=== PATIENT | female | born 1970 ===

== ENCOUNTER 2017-02-01 09:27 | Inpatient (IN) | payer MEDICAID ==
[2017-02-01 09:28] VITALS: BMI 24.7
[2017-02-01 09:56] VITALS: O2SAT 99
--- NOTE | 2017-02-01 12:00 | ED PDOC ---
Lower Extremity Pain/Injury Time Seen by Provider: 02/01/17 10:00 Chief Complaint (Nursing): Lower Extremity Problem/Injury Chief Complaint (Provider): Lower Extremity Problem/Injury History Per: Patient History/Exam Limitations: no limitations Onset/Duration Of Symptoms: Days (x today) Current Symptoms Are (Timing): Still Present Additional Complaint(s): Jenniffer is a 46 year old female who was brought by EMS to the emergency department for medical evaluation. Patient is complaining of right ankle pain s/p trip. Patient states she slipped and twisted her right ankle and has pain that radiates to her leg. 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 Patient states she has history of depression, but has not taken her medications for many years. Patient has a history of right foot injury and wore a boot before. Denies suicidal ideations or homicidal ideations. PMD: No Family Provider Past Medical History Reviewed: Historical Data, Nursing Documentation, Vital Signs Vital Signs: Last Vital Signs Temp 97.6 F 02/01/17 09:53 Pulse 78 02/01/17 09:53 Resp 18 02/01/17 09:53 BP 157/75 H 02/01/17 09:53 Pulse Ox 99 02/01/17 09:53 - Medical History PMH: Depression, Gastrointestinal Ulcer, HTN - Surgical History Surgical History: Cholecystectomy, Tonsillectomy - Family History Family History: States: Unknown Family Hx - Social History Current smoker - smoking cessation education provided: Yes (3 cigg a day) Alcohol: Occasional - Home Medications Home Medications: Ambulatory Orders Medication Instructions Recorded No Known Home Med [No Known Home 07/06/13 Med] - Allergies Allergies/Adverse Reactions: Allergies Allergy/AdvReac Type Severity Reaction Status Date / Time Penicillins Allergy SWELLING Verified 02/01/17 09:47 Review of Systems ROS Statement: Except As Marked, All Systems Reviewed And Found Negative Musculoskeletal: Positive for: Other (Right Ankle Pain) Psych: Positive for: Depression Physical Exam - Reviewed Nursing Documentation Reviewed: Yes Vital Signs Reviewed: Yes - Physical Exam Appears: Positive for: No Acute Distress Skin: Positive for: Normal Color, Warm, Dry Neck: Positive for: Normal Cardiovascular/Chest: Positive for: Regular Rate, Rhythm Respiratory: Positive for: Normal Breath Sounds. Negative for: Respiratory Distress Gastrointestinal/Abdominal: Positive for: Normal Exam. Negative for: Tenderness Extremity: Positive for: Other (See comments) Neurologic/Psych: Positive for: Alert, Oriented (x 3) Comments: Right Ankle: (+): tenderness over dorsum, capillary refill less than 2 seconds, Full ROM (-): Swelling/stepoff/hematoma Hip: (-): Tenderness FROM of entire R leg - Laboratory Results Result Diagrams: 02/01/17 11:58 02/01/17 11:58 - ECG O2 Sat by Pulse Oximetry: 99 (RA) Pulse Ox Interpretation: Normal Medical Decision Making Medical Decision Making: Time: 11:26 Plan: - Acetaminophen - Alcohol Serum - BMP - Drug Screen, Urine - Salicylate - CBC - Right Ankle X-Ray - Right Foot X-Ray - Right Hip X-Ray - Urinalysis Time: 12:14 Right Foot X-Ray FINDINGS: BONES: Unremarkable. No fracture. JOINTS: Unremarkable. SOFT TISSUES: Normal. OTHER FINDINGS: Small inferior plantar calcaneal spur. IMPRESSION: No demonstrated fracture or dislocation. Time: 12:14 Right Ankle X-ray FINDINGS: BONES: Unremarkable. No fracture. JOINTS: Unremarkable. Ankle mortise maintained. Talar dome intact SOFT TISSUES: Normal. OTHER FINDINGS: Small inferior plantar calcaneal spur. IMPRESSION: No demonstrated fracture or dislocation. Time: 12:16 Right Hip X-Ray FINDINGS: BONES: Unremarkable. No fracture. JOINTS: Normal. SOFT TISSUES: Normal. OTHER FINDINGS: None. IMPRESSION: Normal radiographs of right hip. Time: 15:23 Results discussed with patient. Patient is medical clear for crisis. Time: 15:48 Patient will be admitted as an inpatient in adult psychiatry under the care of Gena Thomas for depression. Scribe Attestation: Documented by Que Flor, acting as a scribe for Alec Marti MD Provider Scribe Attestation: All medical record entries made by the Scribe were at my direction and personally dictated by me. I have reviewed the chart and agree that the record accurately reflects my personal performance of the history, physical exam, medical decision making, and the department course for this patient. I have also personally directed, reviewed, and agree with the discharge instructions and disposition. Disposition - Clinical Impression Clinical Impression: Depression - Patient ED Disposition Is Patient to be Admitted: Yes Doctor Will See Patient In The: Hospital - Disposition Disposition Time: 15:35 Condition: STABLE - Pt Status Changed To: Hospital Disposition Of: Inpatient - Admit Certification Admit to Inpatient:: After my assessment, the patient will require hospitalization for at least two midnights. This is because of the severity of symptoms shown, intensity of services needed, and/or the medical risk in this patient being treated as an outpatient.
[2017-02-01 12:04] LABS: BASO % 0.2 % (0.0-2.0); EOS # 0.1 K/uL (0.0-0.7); EOS % 1.1 % (0.0-4.0); HEMATOCRIT 33.8 % (34.0-47.0); LYMPH # 1.3 K/uL (1.0-4.3); LYMPH % 18.5 % (20.0-40.0); MEAN CELL VOLUME 98.9 fl (81.0-99.0); MEAN CORPUSCULAR HEMOGLOBIN 33.1 pg (27.0-31.0); MEAN CORPUSCULAR HGB CONC 33.5 g/dL (33.0-37.0); MEAN PLATELET VOLUME 7.7 fl (7.2-11.7); MONO # 0.9 K/uL (0.0-0.8); MONO % 12.1 % (0.0-10.0); NEUT # 4.9 K/uL (1.8-7.0); NEUT % 68.1 % (50.0-75.0); NRBC % 0.2 % (0.0-0.0); RED CELL DISTRIBUTION WIDTH 16.4 % (11.5-14.5); WHITE BLOOD COUNT 7.2 K/uL (4.8-10.8)
--- NOTE | 2017-02-01 12:15 | RAD ---
PROCEDURE: Right Foot Radiographs. HISTORY: ankle and foot pain sp sprain COMPARISON: None. FINDINGS: BONES: Unremarkable. No fracture. JOINTS: Unremarkable. SOFT TISSUES: Normal. OTHER FINDINGS: Small inferior plantar calcaneal spur. IMPRESSION: No demonstrated fracture or dislocation.
--- NOTE | 2017-02-01 12:16 | RAD ---
PROCEDURE: Right Ankle Radiographs. HISTORY: sprain COMPARISON: None FINDINGS: BONES: Unremarkable. No fracture. JOINTS: Unremarkable. Ankle mortise maintained. Talar dome intact SOFT TISSUES: Normal. OTHER FINDINGS: Small inferior plantar calcaneal spur. IMPRESSION: No demonstrated fracture or dislocation.
--- NOTE | 2017-02-01 12:17 | RAD ---
PROCEDURE: Right Hip Radiographs. HISTORY: sprain COMPARISON: None. FINDINGS: BONES: Unremarkable. No fracture. JOINTS: Normal. SOFT TISSUES: Normal. OTHER FINDINGS: None. IMPRESSION: Normal radiographs of right hip.
[2017-02-01 12:22] LABS: ALCOHOL SERUM < 10 mg/dl (0-10); BLOOD UREA NITROGEN 11 mg/dl (7-17); CALCIUM 8.9 mg/dL (8.4-10.2); CARBON DIOXIDE 23 mmol/L (22-30); CHLORIDE 109 mmol/L (98-107); GFR AFRICAN-AMERICAN > 60; GLUCOSE,RANDOM 103 mg/dL (65-105); POTASSIUM 4.1 MMOL/L (3.6-5.0); SODIUM 139 mmol/l (132-148)
[2017-02-01 13:10] LABS: URINE COLOR STRAW (YELLOW); URINE GLUCOSE (UA) NEG (Normal)
[2017-02-01 13:11] LABS: RBC URINE 2 /hpf (0-3); URINE BACTERIA FEW (<OCC); URINE BILIRUBIN NEGATIVE (NEGATIVE); URINE BLOOD NEGATIVE (NEGATIVE); URINE KETONE NEGATIVE (NEGATIVE); URINE LEUKOCYTE ESTERASE NEG Leu/uL (Negative); URINE PROTEIN NEGATIVE (NEGATIVE); URINE UROBILINOGEN 0.2 mg/dL (0.2-1.0); WBC URINE 1 /hpf (0-5)
[2017-02-01] MEDS ORDERED: Albuterol HFA 90 mcg/actuation (8 g) IH PRN (20:02)
--- NOTE | 2017-02-01 20:07 | CP.PCM.HP ---
History of Present Illness - History of Present Illness History of Present Illness: CC: Depression, R ankle pain HPI: This is a 46 y/o female, possibly undomiciled, who has HTN, depression, and gastritis but is non compliant with medications. She comes into the ER with R ankle pain after 'slipping and twisting her ankle'. She states she has a ' fractured calcaneus' and multiple other injuries. States pain radiates up her leg, and she is unable to weight bear. States that she is able to tolerate ambulation when she has her air boot. Patient also noted she is depressed, and is feeling worse; not been on medications for years. Denies HI or SI at this time. ROS: 14 systems negative other than HPI MHx: HTN, Depression, gastritis SHx: Cholecystectomy, tonsils Allergies: PCN, lithium, risperidone, amitriptyline Medications: None Family Hx: Patient unable to provide Social Hx: Unclear living situation, likely homeless; occ EtOH, 2-3 cigs daily Present on Admission - Present on Admission Any Indicators Present on Admission: No Past Patient History - Infectious Disease Hx of Infectious Diseases: None - Past Social History Alcohol: Occasional - CARDIAC Hx Cardiac Disorders: No Hx Hypertension: Yes - PULMONARY Hx Tuberculosis: No - NEUROLOGICAL HX Cerebrovascular Accident: No Hx Seizures: No - HEMATOLOGICAL/ONCOLOGICAL Hx Cancer: No Hx Human Immunodeficiency Virus (HIV): No - GENITOURINARY/GYNECOLOGICAL Hx Sexually Transmitted Disorders: No - PSYCHIATRIC Hx Depression: Yes - SURGICAL HISTORY Hx Cholecystectomy: Yes Hx Tonsillectomy: Yes - ANESTHESIA Hx Anesthesia: Yes Hx Anesthesia Reactions: No Meds Allergies/Adverse Reactions: Allergies Allergy/AdvReac Type Severity Reaction Status Date / Time amitriptyline [From Elavil] Allergy Severe DIZZINESS Verified 02/01/17 16:32 lithium Allergy Severe DIZZINESS Verified 02/01/17 16:31 risperidone [From Risperdal] Allergy Severe ANGIOEDEMA Verified 02/01/17 16:30 Penicillins Allergy SWELLING Verified 02/01/17 09:47 Physical Exam - Constitutional Appears: No Acute Distress - Head Exam Head Exam: ATRAUMATIC, NORMOCEPHALIC - Eye Exam Eye Exam: EOMI, PERRL - ENT Exam ENT Exam: Mucous Membranes Moist - Neck Exam Neck exam: Positive for: Normal Inspection - Respiratory Exam Respiratory Exam: Clear to Auscultation Bilateral, NORMAL BREATHING PATTERN - Cardiovascular Exam Cardiovascular Exam: REGULAR RHYTHM, +S1, +S2 - GI/Abdominal Exam GI & Abdominal Exam: Normal Bowel Sounds, Soft - Extremities Exam Extremities exam: Positive for: normal inspection Additional comments: R ankle without swelling/tenderness/redness; appears to have almost full range of motion. Patient unwilling to weight bear without support. - Neurological Exam Neurological exam: Alert, CN II-XII Intact, Oriented x3 - Psychiatric Exam Psychiatric exam: Depressed Results - Vital Signs Recent Vital Signs: Last Vital Signs Temp 97.6 F 02/01/17 09:53 Pulse 78 02/01/17 09:53 Resp 18 02/01/17 09:53 BP 157/75 H 02/01/17 09:53 Pulse Ox 99 02/01/17 16:13 - Labs Result Diagrams: 02/01/17 11:58 02/01/17 11:58 Labs: Laboratory Results - last 24 hr 02/01/17 02/01/17 02/01/17 11:58 11:58 11:58 WBC 7.2 RBC 3.42 L Hgb 11.3 L Hct 33.8 L MCV 98.9 MCH 33.1 H MCHC 33.5 RDW 16.4 H Plt Count 241 MPV 7.7 Neut % (Auto) 68.1 Lymph % (Auto) 18.5 L [place] % (Auto) 12.1 H Eos % (Auto) 1.1 Baso % (Auto) 0.2 Neut # 4.9 Lymph # 1.3 [place] # 0.9 H Eos # 0.1 Baso # 0.0 Sodium 139 Potassium 4.1 Chloride 109 H Carbon Dioxide 23 Anion Gap 11 BUN 11 Creatinine 0.5 L Est GFR ( Amer) > 60 Est GFR (Non-Af Amer) > 60 Random Glucose 103 Calcium 8.9 Urine Color Urine Clarity Urine pH Ur Specific [place] Urine Protein Urine Glucose (UA) Urine Ketones Urine Blood Urine Nitrate Urine Bilirubin Urine Urobilinogen Ur Leukocyte Esterase Urine RBC (Auto) Urine Microscopic WBC Ur Squamous Epith Cells Urine Bacteria Salicylates < 1.0 Urine Opiates Screen Urine Methadone Screen Acetaminophen < 10.0 L Ur Barbiturates Screen Ur Phencyclidine Scrn Ur Amphetamines Screen U Benzodiazepines Scrn U Oth Cocaine Metabols U Cannabinoids Screen Alcohol, Quantitative < 10 02/01/17 02/01/17 12:53 12:53 WBC RBC Hgb Hct MCV MCH MCHC RDW Plt Count MPV Neut % (Auto) Lymph % (Auto) [place] % (Auto) Eos % (Auto) Baso % (Auto) Neut # Lymph # [place] # Eos # Baso # Sodium Potassium Chloride Carbon Dioxide Anion Gap BUN Creatinine Est GFR ( Amer) Est GFR (Non-Af Amer) Random Glucose Calcium Urine Color Straw Urine Clarity Clear Urine pH 6.0 Ur Specific [place] 1.006 Urine Protein Negative Urine Glucose (UA) Neg Urine Ketones Negative Urine Blood Negative Urine Nitrate Negative Urine Bilirubin Negative Urine Urobilinogen 0.2 Ur Leukocyte Esterase Neg Urine RBC (Auto) 2 Urine Microscopic WBC 1 Ur Squamous Epith Cells 1 Urine Bacteria Few H Salicylates Urine Opiates Screen Negative Urine Methadone Screen Negative Acetaminophen Ur Barbiturates Screen Negative Ur Phencyclidine Scrn Negative Ur Amphetamines Screen Negative U Benzodiazepines Scrn Negative U Oth Cocaine Metabols Negative U Cannabinoids Screen Negative Alcohol, Quantitative Assessment & Plan (1) Ankle sprain Assessment and Plan: 46 y/o female admitted for depression, but also claims she has a sprained R ankle and prior injuries and is unable to weightbear. 1) Depression -- as per psych 2) R ankle sprain -- imaging and exam appear normal -Will order ibuprofen for pain with scale -Patient may use her own air boot as needed -Move to 3 NS for closer assistance with ADLs/ambulation 3) HTN -- resume losartan 4) GI -- resume protonix Status: Acute (2) HTN (hypertension) Status: Acute (3) Depression Status: Acute
[2017-02-01] MEDS ORDERED: DiphenhydrAMINE 50 mg/ml Inj IM PRN (20:57)
[2017-02-01] MEDS ORDERED: Alum-Mag Hydrox-Simethicone Susp (30 mL) PO PRN (20:57)
[2017-02-01] MEDS ORDERED: Magnesium Hydroxide Susp 30 ml UD PO PRN (20:57)
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
[2017-02-02 07:11] LABS: T4 8.25 ug/dl (5.5-11.0)
[2017-02-02 07:24] LABS: THYROID STIMULATING HORMONE 0.82 mIU/ML (0.46-4.68)
--- NOTE | 2017-02-02 08:17 | PCM.PSYCH ---
Initial Psychiatric Evaluation - Initial Psychiatric Evaluation Type of Admission: Voluntary Legal Status: Capacity Chief Complaint (in patient's own words): "I was feeling suicidal because I can't walk." Patient's Reaction to Hospitalization: HPI: 46 yo female self referred to the ER due to worsening depression, lack of compliance with psychiatric treatment and suicidal ideation w/o any specific plan/intent. She denies AH/VH/HI/paranoia/delusions. She does reports poor sleep/appetite. She is focused on her difficulty ambulating due to having a poorly healed Right foot s/p breaking it a few years ago (as per patient). PPHx: She reports multiple past psychiatric admission, but could not recall the details. She states that she has been on several medications in the past including Lexpro, Effexor, Zoloft, but it seems that the patient has not been compliant with psychiatric treatment for long periods of time. PMHx: s/p R foot injury, HTN, Asthma, r/o GERD, chronic foot pain ALL: Amitriptyline, Lavelle, Risperidone, PCN SHx: Homeless, has three 3 children; unemployed; she denies drug use, but does report that she drinks ETOH ever few days up to 1 or 2 pts of vodka; she denies history of ETOH w/drawal or current w/drawal symptoms; smokes 1/2 ppd Current Medications: Active Medications Generic Name Dose Route Start Last Admin Trade Name Freq PRN Reason Stop Dose Admin Acetaminophen 650 mg 02/01/17 20:57 Tylenol 325mg Tab PO Q4 PRN T>101;pain 1-7;headache Al Hydrox/Mg Hydrox/Simethicone 30 ml 02/01/17 20:57 Maalox Plus 30 Ml PO Q4 PRN Dyspepsia Albuterol 2 puff 02/01/17 20:02 02/02/17 01:05 Ventolin Hfa 90 Mcg/Actuation (8 G) IH 2 puff Q6H PRN Administration Shortness of Breath Diphenhydramine HCl 50 mg 02/01/17 20:57 Benadryl IM Q6 PRN Extrapyramidal S/S Unable PO Diphenhydramine HCl 50 mg 02/01/17 20:57 Benadryl PO Q6 PRN Extrapyramidal Symptoms Diphenhydramine HCl 50 mg 02/01/17 21:03 Benadryl PO HS PRN Sleep Fluoxetine HCl 20 mg 02/02/17 09:00 Prozac PO DAILY [facility] Haloperidol 5 mg 02/01/17 20:57 Haldol PO Q4 PRN Agitation Haloperidol Lactate 5 mg 02/01/17 20:57 Haldol IM Q4 PRN Agitation, Unable to Take PO Ibuprofen 600 mg 02/01/17 20:01 Motrin Tab PO Q8 PRN Pain, moderate (4-7) Ibuprofen 400 mg 02/01/17 20:01 Motrin Tab PO Q8H PRN Pain, Mild (1-3) Lorazepam 2 mg 02/01/17 20:57 Ativan IM Q4 PRN Anxiety/Agitation,Unable PO Losartan Potassium 50 mg 02/02/17 09:00 Cozaar PO DAILY [facility] Magnesium Hydroxide 30 ml 02/01/17 20:57 Milk Of Magnesia PO HS PRN Constipation Pantoprazole Sodium 40 mg 02/02/17 09:00 Protonix Ec Tab PO DAILY [facility] Past Psychiatric History - Past Psychiatric History Previous Treatment History: Inpatient Pertinent Medical Hx (Current Medical&Sleep Prob, Allergies): Allergies Allergy/AdvReac Type Severity Reaction Status Date / Time amitriptyline [From Elavil] Allergy Severe DIZZINESS Verified 02/01/17 16:32 lithium Allergy Severe DIZZINESS Verified 02/01/17 16:31 risperidone [From Risperdal] Allergy Severe ANGIOEDEMA Verified 02/01/17 16:30 Penicillins Allergy SWELLING Verified 02/01/17 09:47 Albuterol Sulfate [Proair Hfa] 2 puff IH Q6H PRN 02/01/17 Iron Carb,Gl/FA/B12/C/Docusate [Ferralet 90 Tablet] 1 tab PO DAILY 02/01/17 Losartan [Cozaar] 50 mg PO DAILY 02/01/17 Pantoprazole Sodium [Protonix] 40 mg PO DAILY 02/01/17 Review of Systems - Psychiatric Psychiatric: As Per HPI, Abnormal Sleep Pattern, Anxiety, Change in Appetite, Depression, Irritability, Mood Swings, Suicidal Ideation Mental Status Examination - Personal Presentation Personal Presentation: Looks stated age - Affect Affect: Constricted, Other (Irritable) - Motor Activity Motor Activity: Calm - Reliability in Providing Information Reliability in Providing Information: Fair - Speech Speech: Organized - Mood Mood: Depressed - Formal Thought Process Formal Thought Process: No Impairment - Hallucinations/Delusions Additional comments: No AH/VH/paranoia/delusions - Obsessions/Compulsions Obsessions: No Compulsions: No - Cognitive Functions Orientation: Person, Place, Situation, Time Sensorium: Alert Attention/Concentration: Attentive Judgement: Intact, as evidence by: Insight regarding need for hospitalization Memory: Recent intact, as evidence by: Ability to recall events of the day, Remote intact, as evidenced by: Abilit to recall sig. life events, Remote intact , as evidenced by: Ability to recall historical events - Risk Risk: Suicidal, Diminished functioning - Strength & Assets Inventory Strength & Assets Inventory: Cooperative - Limitations Limitations: Other (Homelessness, Poverty) DSM 5 DX - DSM 5 DSM 5 Diagnosis: Major Depressive Disorder; Alcohol Use Disorder - Recommended/Plan of Treatment Treatment Recommendations and Plan of Treatment: Major Depressive Disorder; Alcohol Use Disorder; patient needs acute inpatient psychiatric admission for treatment and safety -Admit to psychiatry unit -Individual and group therapy -Motivational interviewing re: alcohol abuse -Will monitor for signs/symptoms of ETOH w/drawal -Disposition planning -Start Prozac 20 mg PO Daily and Trazodone 50 mg PO HS -Medicine consult -Podiatry consult -Nicotine patch Projected ELOS: 3-7 days Discharge Plan and Discharge Criteria: Discharge when psychiatrically stable - Smoking Cessation Smoking Cessation Initiated: Yes
[2017-02-02] MEDS: Pantoprazole 40 mg EC Tab PO SCH (08:39)
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
[2017-02-03] MEDS: Pantoprazole 40 mg EC Tab PO SCH (08:29)
--- NOTE | 2017-02-03 12:10 | PCM.PYCHPN ---
Psychiatric Progress Note - Psychiatric Progress Note Patient seen today, length of contact: Patient evaluated, case discussed with team, chart reviewed Patient Chief Complaint: "I'm depressed." Problems Identified/Issues Discussed: Patient is very irritable w/ staff and rewriter. She called the rewriter clementine B several times. She reports that her irritability is from feeling depressed. She continues to insist that she can not walk, despite not having any medical reason to prevent her from walking. She denies acute ideation to harm self or others. She reports continued difficulty sleeping at night and states that she took Trazodone 100 mg in the past, which was helpful for her insomnia. Medication Change: Yes (Increase Trazodone to 100 mg PO HS) Medical Record Reviewed: Yes Consults ordered or reviewed: Medicine consult, Podiatry consult, Physical Therapy consult Mental Status Examination - Cognitive Function Orientation: Person, Place, Situation, Time Memory: Intact Attention: WNL Concentration: WNL Association: WNL Fund of Knowledge: WN Decription of patient's judgement and insights: Fair I/ poor J - Mood Mood: Depressed - Affect Affect: Other (Irritable) - Speech Speech: Appropriate - Formal Thought Process Formal Thought Process: No Impairment Psychotic Thoughts and Behaviors: NO AH/VH/paranoia/delusions - Suicidal Ideation Suicidal Ideation: No - Homicidal Ideation Homicidal Ideation: No Goal/Treatment Plan - Goal/Treatment Plan Need for Continued Stay: Remain at risks for inpatient hospitalization, Severe depression anxiety Progress Toward Problem(s) and Goals/Treatment Plan: Major Depressive Disorder; Alcohol Use Disorder; patient needs acute inpatient psychiatric admission for treatment and safety -Individual and group therapy -Motivational interviewing re: alcohol abuse -Will monitor for signs/symptoms of ETOH w/drawal -Disposition planning -Continue Prozac 20 mg PO Daily -Increase Trazodone to 100 mg PO HS -Medicine consult -Podiatry consult -Physical Therapy consult -Nicotine patch Estimated Date of D/C: 02/07/17 - Smoking Cessation Smoking Cessation Initiated: Yes
--- NOTE | 2017-02-03 16:01 | CARD ---
APPROVED REPORT EKG Measurement Heart [id number] <Conclusion> Normal sinus rhythm with sinus arrhythmia Normal ECG
[2017-02-04] MEDS: Pantoprazole 40 mg EC Tab PO SCH ×2 (08:19→21:04)
--- NOTE | 2017-02-04 09:00 | PCM.PYCHPN ---
Psychiatric Progress Note - Psychiatric Progress Note Patient seen today, length of contact: Patient evaluated, case discussed with team, chart reviewed Patient Chief Complaint: "I'm depressed." Problems Identified/Issues Discussed: Patient continues to report feeling depressed. She reports low motivation and anhedonia. She reports improved sleep with the increase in Trazodone. No acute SI/HI/AH/VH. Medication Change: No Medical Record Reviewed: Yes Consults ordered or reviewed: Medicine consult, Podiatry consult, Physical Therapy consult Mental Status Examination - Cognitive Function Orientation: Person, Place, Situation, Time Memory: Intact Attention: WNL Concentration: WNL Association: WN Fund of Knowledge: [facility] Decription of patient's judgement and insights: Fair I/ poor J - Mood Mood: Depressed - Affect Affect: Depressed - Speech Speech: Appropriate - Formal Thought Process Formal Thought Process: No Impairment Psychotic Thoughts and Behaviors: NO AH/VH/paranoia/delusions - Suicidal Ideation Suicidal Ideation: No - Homicidal Ideation Homicidal Ideation: No Goal/Treatment Plan - Goal/Treatment Plan Need for Continued Stay: Remain at risks for inpatient hospitalization, Severe depression anxiety Progress Toward Problem(s) and Goals/Treatment Plan: Major Depressive Disorder; Alcohol Use Disorder; patient needs acute inpatient psychiatric admission for treatment and safety -Individual and group therapy -Motivational interviewing re: alcohol abuse -No current signs/symptoms of ETOH w/drawal -Disposition planning -Continue Prozac 20 mg PO Daily -Continue Trazodone 100 mg PO HS -Medicine consult -Podiatry consult -Physical Therapy consult -Nicotine patch Estimated Date of D/C: 02/07/17 - Smoking Cessation Smoking Cessation Initiated: Yes
--- NOTE | 2017-02-05 09:01 | PCM.PYCHPN ---
Psychiatric Progress Note - Psychiatric Progress Note Patient seen today, length of contact: Patient evaluated, case discussed with team, chart reviewed Patient Chief Complaint: "I'm depressed." Problems Identified/Issues Discussed: No significant events overnight. Patient has improved sleep and good appetite. Patient continues to report feeling depressed. No acute SI/HI/AH/VH. Medication Change: No Medical Record Reviewed: Yes Consults ordered or reviewed: Medicine consult, Podiatry consult, Physical Therapy consult Mental Status Examination - Cognitive Function Orientation: Person, Place, Situation, Time Memory: Intact Attention: WNL Concentration: WNL Association: WNL Fund of Knowledge: [place] Decription of patient's judgement and insights: Fair I/ poor J - Mood Mood: Depressed - Affect Affect: Depressed - Speech Speech: Appropriate - Formal Thought Process Formal Thought Process: No Impairment Psychotic Thoughts and Behaviors: NO AH/VH/paranoia/delusions - Suicidal Ideation Suicidal Ideation: No - Homicidal Ideation Homicidal Ideation: No Goal/Treatment Plan - Goal/Treatment Plan Need for Continued Stay: Remain at risks for inpatient hospitalization, Severe depression anxiety Progress Toward Problem(s) and Goals/Treatment Plan: Major Depressive Disorder; Alcohol Use Disorder; patient needs acute inpatient psychiatric admission for treatment and safety -Individual and group therapy -Motivational interviewing re: alcohol abuse -No current signs/symptoms of ETOH w/drawal -Disposition planning -Continue Prozac 20 mg PO Daily -Continue Trazodone 100 mg PO HS -Medicine consult -Podiatry consult -Physical Therapy consult -Nicotine patch Estimated Date of D/C: 02/07/17 - Smoking Cessation Smoking Cessation Initiated: Yes
[2017-02-05] MEDS: Pantoprazole 40 mg EC Tab PO SCH (21:30)
--- NOTE | 2017-02-06 09:59 | PCM.PYCHPN ---
Psychiatric Progress Note - Psychiatric Progress Note Patient seen today, length of contact: Patient evaluated, case discussed with team, chart reviewed Patient Chief Complaint: "I'm depressed." Problems Identified/Issues Discussed: No significant events. Patient has improved sleep and good appetite. Patient continues to report feeling depressed, but she may be exaggerating symptoms to prolong her stay. No acute SI/HI/AH/VH. Medication Change: No Medical Record Reviewed: Yes Consults ordered or reviewed: Medicine consult, Podiatry consult, Physical Therapy consult Mental Status Examination - Cognitive Function Orientation: Person, Place, Situation, Time Memory: Intact Attention: WNL Concentration: WNL Association: [facility] Fund of Knowledge: [facility] Decription of patient's judgement and insights: Fair I/ poor J - Mood Mood: Depressed - Affect Affect: Broad - Speech Speech: Appropriate - Formal Thought Process Formal Thought Process: No Impairment Psychotic Thoughts and Behaviors: NO AH/VH/paranoia/delusions - Suicidal Ideation Suicidal Ideation: No - Homicidal Ideation Homicidal Ideation: No Goal/Treatment Plan - Goal/Treatment Plan Need for Continued Stay: Remain at risks for inpatient hospitalization, Severe depression anxiety Progress Toward Problem(s) and Goals/Treatment Plan: Major Depressive Disorder; Alcohol Use Disorder; patient is improving clinically , but may be exaggerating her symptoms to prolong her stay for secondary gain of housing. -Individual and group therapy -Motivational interviewing re: alcohol abuse -No current signs/symptoms of ETOH w/drawal -Disposition planning -Continue Prozac 20 mg PO Daily -Continue Trazodone 100 mg PO HS -Medicine consult -Podiatry consult -Physical Therapy consult -Nicotine patch Estimated Date of D/C: 02/07/17
[2017-02-06] MEDS: Lidocaine 5% Patch TD SCH (13:32)
[2017-02-06] MEDS: Pantoprazole 40 mg EC Tab PO SCH (21:02)
[2017-02-07 06:18] VITALS: BP 144/72; PULSE 76; RESP 19; TEMP 97.6
[2017-02-07] MEDS: Lidocaine 5% Patch TD SCH (08:28)
--- NOTE | 2017-02-07 09:26 | PCM.PYCHDC ---
Mental Status Examination - Mental Status Examination Orientation: Person, Place, Situation, Time Memory: Intact Mood: Neutral Affect: Broad Speech: Appropriate Attention: WNL Concentration: WNL Association: WNL Fund of Knowledge: WNL Formal Thought Process: No Impairment Description of patient's judgement and insight: Fair I/J Psychotic Thoughts and Behaviors: NO AH/VH/paranoia/delusions Suicidal Ideation: No Current Homicidal Ideation?: No Discharge Summary - Discharge Note Reason for Hospitalization: HPI: 46 yo female self referred to the ER due to worsening depression, lack of compliance with psychiatric treatment and suicidal ideation w/o any specific plan/intent. She denies AH/VH/HI/paranoia/delusions. She does reports poor sleep/appetite. She is focused on her difficulty ambulating due to having a poorly healed Right foot s/p breaking it a few years ago (as per patient). PPHx: She reports multiple past psychiatric admission, but could not recall the details. She states that she has been on several medications in the past including Lexpro, Effexor, Zoloft, but it seems that the patient has not been compliant with psychiatric treatment for long periods of time. PMHx: s/p R foot injury, HTN, Asthma, GERD, chronic foot pain ALL: Amitriptyline, [place], Risperidone, PCN SHx: Homeless, has three 3 children; unemployed; she denies drug use, but does report that she drinks ETOH ever few days up to 1 or 2 pts of vodka; she denies history of ETOH w/drawal or current w/drawal symptoms; smokes 1/2 ppd Consultations:: List each consultation separately and include: 1. Reason for request. 2. Findings. 3. Follow-up Consultations: Medicine consult, Podiatry consult, Physical Therapy consult Summary of Hospital Course include:: 1. Description of specific treatment plan utilized for patients during their course of treatmen. 2. Summarize the time- course for resolution of acute symptoms and/or regressed behaviors. 3. Describe issues identified and worked on during hospitalization. 4. Describe medication utilized. 5. Describe medical problems identified and treated. 6. Reassessment of suicide risk Summary of Hospital Course: Patient was admitted to the psychiatry unit. Individual and group therapy were provided. Patient was stabilized on Prozac and Trazodone. Patient is exaggerating her symptoms to try to prolong her hospitalization for the secondary gain of housing. She also pretends that she is not able to walk, but has been observed walking by staff when the patient it not aware anyone is watching. - Diagnosis (1) Major depressive disorder Current Visit: Yes Status: Chronic - Final Diagnosis (DSM 5) Condition upon Discharge: STABLE DSM 5: Malingering; Major Depressive Disorder; Alcohol Use Disorder Disposition: HOME/ ROUTINE Follow-up Treatment Plan: Malingering; Major Depressive Disorder; Alcohol Use Disorder; patient is psychiatrically stable for discharge. Patient continues to exaggerate symptoms to try to prolong her hospitalization and pretends she is unable to walk despite not having any acute foot/ankle injury, walking herself into the hospital prior to admission and also walking when she does not know that staff is watching her. -Individual and group therapy -Motivational interviewing re: alcohol abuse -Continue Prozac 20 mg PO Daily -Continue Trazodone 100 mg PO HS -Medicine consult -Podiatry consult -Physical Therapy consult -Nicotine patch Prescriptions/Medication Reconciliation: Albuterol HFA [Ventolin HFA 90 mcg/actuation (8 g)] 2 puff IH Q6H PRN #1 inhaler PRN Reason: Shortness Of Breath FLUoxetine [Prozac] 20 mg PO DAILY #30 cap Gabapentin [Neurontin] 600 mg PO TID #90 tab Losartan [Cozaar] 50 mg PO DAILY #30 tab Pantoprazole [Protonix EC Tab] 40 mg PO HS #30 ect traZODone [Desyrel] 100 mg PO HS #30 tab - Smoking Cessation Smoking Cessation Medication prescribed: Yes - Antipsychotic Medications Pt discharged on 2 or more routine antipsychotic medications: No
== END 2017-02-07 12:39 | disposition home or self-care (01) | DRG 426 ==
LOC: H.ER 09:27 → H.ERHOLD 15:48 → H.PSYCH 18:58 → H.STEP 21:17
PROVIDERS: ADMIT Psychiatry & Neurology Psychiatry; ATTEND Psychiatry & Neurology Psychiatry
PROC: GZHZZZZ Group Psychotherapy (ICD-10-PCS; principal; 2017-02-01)
PROC: HZ57ZZZ Individual Psychotherapy for Substance Abuse Treatment, Motivational Enhancement (ICD-10-PCS; 2017-02-01)
DX: F32.9 Major depressive disorder, single episode, unspecified (principal); R45.851 Suicidal ideations; Z91.14 Patient's other noncompliance with medication regimen; W01.0XXA Fall on same level from slipping, tripping and stumbling without subsequent striking against object, initial encounter; J45.909 Unspecified asthma, uncomplicated; K21.9 Gastro-esophageal reflux disease without esophagitis; Z59.0 Homelessness; Z76.5 Malingerer [conscious simulation]; K29.70 Gastritis, unspecified, without bleeding; Z72.89 Other problems related to lifestyle; Z88.0 Allergy status to penicillin; I10 Essential (primary) hypertension; F17.210 Nicotine dependence, cigarettes, uncomplicated; G89.29 Other chronic pain; S93.401A Sprain of unspecified ligament of right ankle, initial encounter